=== PATIENT | female | born 1975 ===

== ENCOUNTER 2019-10-20 16:01 | Outpatient (RCR) | payer BC, SELFPAY ==
--- NOTE | 2019-10-20 17:06 | PTOPEVAL ---
Thank you for referring Valeria Sparrow to [facility].? The patient is scheduled to be seen for therapy? ____x/week for ___ weeks. Please review, sign, date and return this plan of care BENJAMÍN. I agree with and certify that the following plan of care is medically necessary. Referring Physician Date Admitting Provider: Attending Provider: Wendy Bhagat MD Referring Provider: *PT Outpatient Evaluation Start: 10/20/19 16:18 Freq: Status: Active Protocol: Document 10/20/19 16:19 [email or web address] (Rec: 10/20/19 17:02 [email or web address]) Therapy Assessment Status Assessment Status Assessment Status Evaluation Evaluation Information Problem Diagnosis low back pain, cervicalgia Onset 10/19/19 Subjective Information Pt. reports that she has had Query Text:As Reported By Patient/ low back pain since she was 16 Family . She reports pain is across the low back and shoots into the buttock. She states that laying eases her pain, but everything else increases her low back pain. 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 She also suffers from neck pain and states that she does get alot of headaches due to neck. She states that she also experiences numbness into both arm. she reports that her hands are getting weak and she cannot hold a coffee pot. She report that her goal is to decrease her pain. Diagnostic Tests X-Rays For This Problem Yes Prior Level of Function Activity Level (Last 3 Months) Occupation teacher Hand Dominance Right Activity of Daily Living Ability Independent Indoor/Home Mobility Independent Community Mobility Independent Stairs Ability Independent Functional Cognition (Planning, Shopping Independent , Taking Medications) Cooking Yes Cleaning Yes Laundry Yes Shopping Yes Driving Yes Pain Assessment Pain Scale Pain Scale Used Numeric (1 - 10) Self Report Pain Assessment Neck Reported Pain Level 5 Lower Back Reported Pain Level 5 Greatest Pain Intensity
--- NOTE | 2019-10-25 15:32 | PCPTNOTE ---
patient called and cancelled appt due to work. MASSIMO
--- NOTE | 2019-12-08 12:42 | PCPTNOTE ---
Mrs. Sparrow attended a total of 4 treatment sessions from 10/20/19 to 11/03/19. I talked with Mrs. Sparrow via telephone on this date. She states that she is doing better and continues to exercise. She is limited in therapy attendance due to concerns with her insurance. She will be discharged from our care. Refer to her last daily note for discharge status. Thank you for the referral of this pt. Jaylon Marshall, MPT
== END 2020-01-18 23:59 | disposition home or self-care (01) ==
LOC: CHSPT 16:01
PROVIDERS: PCP Family Medicine; Visit Provider Family Medicine
DX: M54.5 Low back pain (principal); M54.2 Cervicalgia
CPT/HCPCS: 97014; 97110; 97140; 97161; G0283

== ENCOUNTER → 2020-03-18 07:21 | Outpatient (CLI) | payer BC, SELFPAY ==
--- NOTE | ~2020-03-18 | MR_ITS ---
EXAMINATION: MR cervical spine wo con DATE: 03/18/2020 08:27 INDICATION: Cervicalgia TECHNIQUE: Magnetic resonance imaging (MRI) of the cervical spine was performed without intravenous c ontrast. Sequences included sagittal T2-weighted FSE, sagittal T2-weighted FS FSE, sagittal T1-weight ed FSE, axial MERGE and axial T2-weighted FSE. COMPARISON: None FINDINGS: Bone alignment is normal. Vertebral body heights are normal. Bone marrow signal intensity is normal . Mild disc height loss at C5-C6. Cord signal intensity is normal. Cervical soft tissues are unremark able. The following disc levels are specifically discussed: C2-C3: The disc does not extend beyond the endplate margin. There is no uncovertebral joint osteoarth ritis. There is mild left facet joint osteoarthritis. There is minimal left neural foraminal stenosis . There is no central canal stenosis. C3-C4: Annular fissure and small central disc protrusion. There is mild bilateral uncovertebral joint osteoarthritis. There is minimal bilateral facet joint osteoarthritis. There is minimal left neural foraminal stenosis. There is mild central canal stenosis. C4-C5: Disc is minimally bulging. There is mild left and minimal right uncovertebral joint osteoarthr itis. There is altered left and minimal right facet joint osteoarthritis. There is minimal left neura l foraminal stenosis. There is no central canal stenosis. C5-C6: Annular fissure and small central disc extrusion with disc material extending up to 3 mm cauda l to the level of the superior endplate of C6. There is mild bilateral uncovertebral joint osteoarthr itis. There is mild bilateral facet joint osteoarthritis. There is no neural foraminal stenosis. Ther e is mild central canal stenosis with mild indention of the central ventral surface of the cord which remains surrounded by CSF signal. C6-C7: Annular fissure and tiny central disc extrusion which extends negligibly below the level of th e superior endplate of C7. There is mild left uncovertebral joint osteoarthritis. There is minimal bi lateral facet joint osteoarthritis. There is no neural foraminal stenosis. There is no central canal stenosis. C7-T1: Disc is mildly bulging with annular fissure and small central disc extrusion with disc materia l extending 3 mm caudal to the level of the superior endplate of T1. There is mild bilateral uncovert ebral joint osteoarthritis. There is mild bilateral facet joint osteoarthritis. There is no neural fo raminal stenosis. There is minimal central canal stenosis. IMPRESSION: 1. Mild cervical spondylosis. Reviewed, dictated and finalized at location A. SINGER
== END ==
PROVIDERS: PCP Physician Assistant Medical; Visit Provider Nurse Practitioner Family
DX: M54.2 Cervicalgia (principal); M47.812 Spondylosis without myelopathy or radiculopathy, cervical region
CPT/HCPCS: 72141

== ENCOUNTER → 2020-03-18 07:22 | Outpatient (CLI) | payer BC, SELFPAY ==
--- NOTE | ~2020-03-18 | MR_ITS ---
EXAMINATION: MR lumbar spine wo con DATE: 03/18/2020 08:44 INDICATION: Low back and right hip pain. TECHNIQUE: Magnetic resonance imaging (MRI) of the lumbar spine was performed without intravenous con trast. Sequences included sagittal T2-weighted FSE, sagittal T2-weighted FS FSE, sagittal T1-weighted FSE, and axial T2-weighted FSE. COMPARISON: 05/27/2018 FINDINGS: And seen is minimal lumbar levocurvature. There is now 5 mm anterolisthesis L5 on S1. There is severe bilateral facet osteoarthritis at L5-S1 with associated degenerative reactive marrow edema. No defin itive pars interarticularis defects appreciated. Additional T2 hyperintense mild fibrofatty degenerat sahara endplate change at the anterior inferior endplate of L5. Small T1 hyperintense hemangioma at L2. Marrow signal is otherwise normal. Vertebral body heights are normal. Regression of now mild to moder ate disc height loss at L5-S1. Unchanged mild disc height loss at L3-L4. The conus medullaris termina nannette at L1. There is normal signal in the caudal spinal cord. Paravertebral soft tissues are unremarka ble. The following disc levels are specifically discussed: T12-L1: The disc does not extend beyond the endplate margin. There is mild bilateral facet joint oste oarthritis. There is no neural foraminal stenosis. There is no central canal stenosis. L1-L2: Disc is minimally bulging. There is mild bilateral facet joint osteoarthritis. There is no dawit ral foraminal stenosis. There is no central canal stenosis. L2-L3: Disc is minimally bulging. There is mild bilateral facet joint osteoarthritis. There is no dawit ral foraminal stenosis. There is no central canal stenosis. L3-L4: Disc is mildly bulging with annular fissure and small superimposed left foraminal disc protrus ion. There is mild to moderate bilateral facet joint osteoarthritis. There is mild bilateral neural f oraminal stenosis. There is mild central canal stenosis. L4-L5: Disc is minimally bulging. There is mild moderate bilateral facet joint osteoarthritis. There is mild bilateral neural foraminal stenosis. There is no central canal stenosis. L5-S1: Disc is bulging with annular fissure and superimposed right foraminal zone disc extrusion with disc material extending 1-2 mm cephalad to the level of the inferior endplate of L5. There is severe bilateral facet joint osteoarthritis. There is moderate to severe left neural foraminal stenosis. T here is moderate to severe stenosis at the medial side of the right neural foramen with severe stenos is at the exit of the neural foramen with the exiting L5 nerve root appears compressed between the di sc extrusion and the base of the right transverse process. There is mild central canal stenosis. IMPRESSION: 1. Interval progression of now moderate spondylosis at the lumbosacral junction with 5 mm anterolisth esis L5 on S1 resulting in moderate to severe left and severe right neural foraminal stenosis. 2. No interval change in minimal to mild spondylosis of the more cephalad lumbar spine. Reviewed, dictated and finalized at location A. R AND TIER IMPRESSION: 1. Interval progression of now moderate spondylosis at the lumbosacral junction with 5 mm anterolisthesis L5 on S1 resulting in moderate to severe left and se chad right neural foraminal stenosis. 2. No interval change in minimal to mild spondylosis of the more cephalad lumba r spine.
== END ==
PROVIDERS: Visit Provider Physician Assistant Medical
DX: M54.2 Cervicalgia (principal); M47.812 Spondylosis without myelopathy or radiculopathy, cervical region
CPT/HCPCS: 72148

== ENCOUNTER 2023-01-25 14:45 | Outpatient (CLI) | payer OTHER, SELFPAY ==
[2023-01-25 15:10] LABS: Basophils Absolute Auto 0.03 K/mm3 (0.00-0.10); Basophils Percent Auto 0.4 % (0.0-1.0); Eosinophils Absolute Auto 0.06 K/mm3 (0.02-0.50); Eosinophils Percent Auto 0.7 % (1.0-6.0); Hematocrit 41.5 % (35.0-49.0); Hemoglobin 13.4 g/dL (12.0-15.0); Immature Granulocyte Absolute 0.02 K/mm3 (0.00-0.00); Immature Granulocyte Percent A 0.2 % (0.0-0.0); Lymphocytes Percent Auto 24.5 % (18.0-42.0); Mean Corpuscular HGB Conc 32.3 g/dL (32.0-36.0); Mean Corpuscular Hemoglobin 29.8 pg (27.0-31.0); Mean Corpuscular Volume 92.4 fL (78.0-102.0); Mean Platelet Volume 8.8 fl (9.2-11.8); Monocytes Absolute Auto 0.63 K/mm3 (0.10-0.90); Monocytes Percent Auto 7.4 % (2.0-11.0); Neutrophils Absolute Auto 5.7 K/mm3 (1.7-7.2); Neutrophils Percent Auto 66.8 % (50.0-70.0); Platelet Count Result 322 K/mm3 (150-420); Red Blood Count 4.49 M/mm3 (4.20-5.40); White Blood Count 8.6 K/mm3 (4.8-10.8)
== END 2023-01-25 14:46 | disposition home or self-care (01) ==
LOC: CHSLAB 14:49
PROVIDERS: PCP Physician Assistant; Visit Provider Physician Assistant
DX: D75.839 Thrombocytosis, unspecified (principal)
CPT/HCPCS: 36415; 85025